=== PATIENT | female | born 1980 | race Two or more races ===

== ENCOUNTER 2016-10-17 08:15 | Inpatient (IN) | payer SELFPAY ==
[~2016-10-17] VITALS: Ht 160 cm; Wt 77.6 kg
[2016-10-17] MEDS ORDERED: LIDOCAINE 1% PF 30 ML VIAL. INJ PRN (08:30)
[2016-10-17] MEDS ORDERED: TERBUTALINE 1 MG/ML VIAL. SQ PRN (08:30)
[2016-10-17] MEDS ORDERED: 0.9 % SODIUM CHLORIDE 10 ML DISP.SYRIN. IV PRN ×2 (08:30→18:30)
[2016-10-17] MEDS ORDERED: IBUPROFEN 800 MG TABLET. PO PRN (08:30)
[2016-10-17] MEDS ORDERED: OXYTOCIN 30 UNIT/500 ML PREMIX 500 ML IV PRN ×3 (08:30→18:30)
[2016-10-17] MEDS ORDERED: FENTANYL PF 100 MCG/2 ML VIAL. IV PRN (08:30)
[2016-10-17 09:00] VITALS: BP 112/59
[2016-10-17] MEDS ORDERED: AMPICILLIN 2 GM in IV NORMAL SALINE 100ML 100 ML IV ONE (09:00)
[2016-10-17] MEDS: IV RINGERS,LACTATED 1000ML 1,000 ML IV SCH ×2 (09:19→14:05)
[2016-10-17 09:54] LABS: HEMATOCRIT 37.2 % (36.0-47.0); HEMOGLOBIN 12.6 g/dL (12.0-15.5); RED BLOOD COUNT 3.92 x10^6/uL (3.50-5.40); RED CELL DISTRIBUTION WIDTH 13.5 % (11.5-14.5); WHITE BLOOD COUNT 6.9 x10^3/uL (4.0-11.0)
[2016-10-17] MEDS: AMPICILLIN 1 GM in IV NORMAL SALINE 50ML 50 ML IV SCH ×3 (13:04→20:14)
[2016-10-17] MEDS ORDERED: L&D EPIDURAL CASSETTE 100 ML EP ONE (13:50)
[2016-10-17] MEDS ORDERED: LIDOCAINE 2% PF Vial for OR 5 ML VIAL. ONE (13:51)
[2016-10-17] MEDS ORDERED: ONDANSETRON PF 4 MG/2 ML VIAL. IV PRN (14:45)
[2016-10-17] MEDS ORDERED: L&D EPIDURAL CASSETTE 100 ML EP PRN (14:45)
[2016-10-17] MEDS ORDERED: ROPIVacaine 0.2% PF 10 ML VIAL. EPI ONE (14:45)
[2016-10-17] MEDS ORDERED: FENTANYL PF 100 MCG/2 ML VIAL. EPI ONE (14:45)
[2016-10-17] MEDS ORDERED: EPHEDRINE PF IN SALINE 50 MG/5 ML DISP.SYRIN. IV PRN (14:45)
[2016-10-17] MEDS ORDERED: NALOXONE 0.4 MG/ML VIAL. IV PRN (14:45)
[2016-10-17] MEDS ORDERED: MISOPROSTOL 200 MCG TABLET ONE ×2 (18:00→18:13)
--- NOTE | 2016-10-17 18:28 | PDOC1 ---
OB - History Hx of Present Care: Good Care Ultrasounds: Normal mid trimester US Obstetrical Complications: None Medical Complications: None Past Family/Social History * Past Medical, Surgical, Family and Obstetric Histories reviewed from chart. Blood Type: O+ Rubella: Immune RPR/VDRL: Negative GBS Status: Positive HBsAG: Negative OB - Chief Complaint & HPI Date of Admission: Date of Admission: Oct 17, 2016 at 08:15 Chief Complaint/History : 9 Para: /8 EDC: Oct 24, 2016 Reason for admission: induction of labor Indication for induction: other Admission Nurse Assessment Rev: Yes Problems: OB - Admission Exam Physical Exam Vitals: VS - Last 72 Hours, by Label Date Time Temp Pulse Resp B/P Pulse Ox O2 Delivery O2 Flow Rate FiO2 10/17/16 14:25 18 10/17/16 09:00 97.9 73 22 112/59 97.9 HEENT: Normal Heart: Regular Rate Lungs: Clear, Equal Abdomen: Gravid Extremities: Normal Pulses, No tenderness or swelling Reflexes: Normal Cervical Dilatation: 3cm Effacement: 25% Station: Ballotable Membranes: Intact Accelerations: Accelerations Present Contractions on Admission: 6-10 Minutes Apart Intensity: Mild Assessment/Plan Assessment/Plan TIUP Grand multip Induction ACSVD MORIS MARCUS MD Oct 17, 2016 18:28
[2016-10-17] MEDS ORDERED: SIMETHICONE 80 MG TAB.CHEW PO PRN (18:30)
[2016-10-17] MEDS ORDERED: PHENYLEPH/MINERAL OIL/PETROLAT RECTAL OINTMENT 28GM TUBE. RC PRN (18:30)
[2016-10-17] MEDS ORDERED: BENZOCAINE 20% TOPICAL AEROSOL SPRAY 57GM CAN. TP PRN (18:30)
[2016-10-17] MEDS ORDERED: ZOLPIDEM 5 MG TABLET. PO PRN (18:30)
[2016-10-17] MEDS ORDERED: DIPHENHYDRAMINE HCL 25 MG CAPSULE PO PRN (18:30)
[2016-10-17] MEDS ORDERED: HYDROCODONE/APAP 5/325MG TABLET. PO PRN ×2 (18:30)
[2016-10-17] MEDS ORDERED: MAGNESIUM HYDROXIDE 2,400 MG/30 ML ORAL.SUSP. PO PRN (18:30)
[2016-10-17] MEDS ORDERED: HYDROCORTISONE 1% TOPICAL OINTMENT 30GM TUBE. TP PRN (18:30)
[2016-10-17] MEDS ORDERED: MAG HYDROX/ALUMINUM HYD/SIMETH 30 ML ORAL.SUSP PO PRN (18:30)
--- NOTE | 2016-10-17 18:31 | PDOC ---
VAGINAL DELIVERY DATE DATE: 10/17/16 TIME: 18:28 : Other (9) Para: Other EDC: Oct 24, 2016 VAGINAL DELIVERY: VTX VACCUM ASSISTED: No PLACENTA: Spontaneous SEX: Female WEIGHT 7/12 Nuchal Cord: No Amniotic Fluid: Clear PAIN: Epidural EPISIOTOMY: No EXTENSION: No EBL 300cc COMPLICATIONS None CONDITION Stable Signs of Intrauterine Infectio: None Shoulder Dystocia: No DIAGNOSIS TIUP del Problems: MORIS MARCUS MD Oct 17, 2016 18:31
[2016-10-17 21:15] VITALS: BP 113/49
[2016-10-17 22:39] VITALS: BP 108/80
[2016-10-18] VITALS (10 sets, daily range): BP systolic 107–117; BP diastolic 37–62
[2016-10-18] MEDS: IBUPROFEN 800 MG TABLET. PO SCH ×2 (01:52→17:54)
[2016-10-18] MEDS ORDERED: ONDANSETRON PF 4 MG/2 ML VIAL. IV PRN (07:00)
[2016-10-18] MEDS ORDERED: PROCHLORPERAZINE 10 MG/2 ML VIAL. IV PRN (07:00)
[2016-10-18] MEDS ORDERED: HYDROMORPHONE 2 MG/ML VIAL. IV PRN (07:00)
[2016-10-18] MEDS ORDERED: FENTANYL PF 100 MCG/2 ML VIAL. IV PRN ×2 (07:00)
[2016-10-18] MEDS ORDERED: IV RINGERS,LACTATED 1000ML 1,000 ML IV SCH (07:00)
[2016-10-18] MEDS ORDERED: MORPHINE SULFATE 2 MG/ML DISP.SYRIN. IV PRN (07:00)
[2016-10-18] MEDS ORDERED: LIDOCAINE 1% 1 ML SYRINGE. ID PRN (07:00)
[2016-10-18] MEDS ORDERED: BUPIVAC MPF-EPI 0.5%-1:200000 30 ML VIAL. ONE (07:07)
[2016-10-18] MEDS ORDERED: FERROUS SULFATE 325 MG TABLET PO SCH (08:00)
[2016-10-18] MEDS ORDERED: SUCCINYLCHOLINE 200 MG/10 ML VIAL. ONE (08:05)
[2016-10-18] MEDS ORDERED: PROPOFOL 20 ML IV ONE (08:05)
[2016-10-18] MEDS ORDERED: ONDANSETRON PF 4 MG/2 ML VIAL. ONE (08:05)
[2016-10-18] MEDS ORDERED: FENTANYL PF 100 MCG/2 ML VIAL. ONE (08:05)
[2016-10-18] MEDS ORDERED: LIDOCAINE 2% 100 MG/5 ML DISP.SYRIN. ONE (08:05)
[2016-10-18] MEDS ORDERED: DEXAMETHASONE SOD PHOS 20 MG/5 ML VIAL. ONE (08:05)
[2016-10-18] MEDS ORDERED: ROPIVacaine 0.2% IN 0.9%NACL PF 40 MG/20 ML DISP.SYRIN. ONE (08:13)
[2016-10-18] MEDS ORDERED: KETOROLAC 30 MG/ML SYRINGE FOR OR. INJ ONE (08:30)
--- NOTE | 2016-10-18 09:08 | PDOC ---
BRIEF OPERATIVE NOTE Date: Oct 18, 2016 Pre-Op Diagnosis Multiparous desires permanent sterilization Post-Op Diagnosis Same Procedure Performed PPBTL Surgeon AMRIT Anesthesia Type: General Blood Loss 20cc Specimens Obtained R and L ovaducts Complications None MORIS MARCUS MD Oct 18, 2016 09:08
--- NOTE | 2016-10-18 10:08 | OP ---
DATE OF SURGERY: 10/18/2016 PREOPERATIVE DIAGNOSIS: Multiparous, desires permanent sterilization. POSTOPERATIVE DIAGNOSES: Multiparous, desires permanent sterilization. PROCEDURE: bilateral tubal ligation. SURGEON: Moris Pearson M.D. FOREST PATROLMAN: None. ANESTHESIA: General. ESTIMATED BLOOD LOSS: Less than 10 mL. FLUIDS: Crystalloid. SPECIMENS: Right and left oviducts. COMPLICATIONS: None. CONDITION: Stable. DESCRIPTION OF PROCEDURE: After risks, benefits, indications, and alternatives were discussed in detail with the patient, the patient was brought to the OR theater, placed in a supine position. After adequate general anesthesia, the patient was prepped and draped in usual sterile manner. An infraumbilical incision was made sharply with a scalpel. Rectus fascia was grasped x 2 with Allis clamps, elevated way above the abdominal contents and incised sharply with the scalpel. Peritoneum was entered bluntly with a gloved hand. [facility] retractor was placed in the space, first it was placed to the incision over the left cornu. After the patient was placed in the Trendelenburg, left tube was grasped with [place] clamps, followed to its fimbriated end. A relatively avascular portion in the mid ampullary region was identified. Bovie cautery was used to make a window through this, 2-0 plain ties were used to doubly ligate the tube approximately 2 to 3 cm apart. The tube was transected between these two ligatures. The ends of the tube were cauterized. Good hemostasis was assured, and then the tube was allowed to fall back within the abdominal cavity. Same procedure was carried out on the opposite side. The rectus fascia was reapproximated with 0 Vicryl in a running manner. Subcutaneous tissue was reapproximated with 4-0 Monocryl in subcuticular fashion. The skin was reapproximated with 4-0 Monocryl in subcuticular fashion, not the subcutaneous tissue. The skin was reapproximated with 4-0 Monocryl in subcuticular fashion. The incision was infiltrated with 0.5% Marcaine with epinephrine, approximately 30 mL. The procedure was terminated. Sponge, needle, and instrument counts were correct x 2 per nursing staff. The patient went to postop anesthesia recovery in stable condition. MORIS PEARSON MD DR: James JOB#: [id number] / [id number]
[2016-10-19] MEDS: ACETAMINOPHEN 325 MG TABLET. PO PRN ×2 (01:36→07:59)
[2016-10-19 04:43] VITALS: BP 104/58
[2016-10-19] MEDS: IBUPROFEN 800 MG TABLET. PO SCH ×2 (06:28→14:13)
[2016-10-19 11:20] VITALS: BP 104/60
--- NOTE | 2016-10-19 13:18 | PDOC3 ---
OB DISCHARGE SUMMARY DATE OF ADMISSION: 10/17/16 DATE OF DISCHARGE: 10/19/16 REASON FOR ADMISSION: Induction of labor PROCEDURES: None INTRAPARTUM PROCEDURES: Spontanous Vag Deliv PROCEDURES: Tubal Ligation OPERATIONS: None DISCHARGE DIAGNOSIS: Term Delivered DISCHARGE INFORMATION: Activity, Diet HOSPITAL COURSE unremarkable CONDITION AT DISCHARGE Stable MORIS MARCUS MD Oct 19, 2016 13:18
[2016-10-19] MEDS ORDERED: NAPR500T PO (13:46)
[2016-10-19] MEDS ORDERED: OXYC-323 PO (13:46)
--- NOTE | 2016-10-21 08:31 | PATHOLOGY ---
PATHOLOGY REPORT * * * * * * * * FINAL DIAGNOSIS: A. Fallopian tube, right tubal ligation: - Segment of fallopian tube confirmed. B. Fallopian tube, left tubal ligation: - Segment of fallopian tube confirmed. (JPM:csd; d/t: 10/20/2016) REPORT ELECTRONICALLY SIGNED BY: Elgin Rider M.D. DATE/TIME: 10/21/2016 08:30 * * * * * * * * GROSS PATHOLOGY: A. Received in formalin labeled "Sary Huffman, right tube," is a pink-walker segment of fallopian tube measuring 2.7 cm in length and 0.5 cm in diameter. The tissue is submitted entirely in cassette A1. B. Received in formalin labeled "Sary Huffman, left tube," is a pink-walker segment of fallopian tube measuring 2.1 cm in length and 0.5 cm in diameter. The tissue is submitted entirely in cassette B1. (KAH; 10/19/2016) INITIAL CPT CODE(S): A; 66001 B; 40349 Professional services performed [place] [facility] [place] [address] Technical services performed by [facility] at [address] [place] [address], [facility] [address] [address]. SPECIMEN(S) RECEIVED: A.Right tube B.Left tube CLINICAL HISTORY: Bilateral tubal ligation PATIENT: SARY HUFFMAN /AGE: 602/05/1980 (Age: 36) PATIENT #: [id number] ALT CASE #: SPECIMEN COLLECTION DATE: 10/18/2016 SPECIMEN RECEIVED DATE: 10/19/2016 [facility] - [address] [place] [address] - PHONE: [phone] * * * END OF REPORT * * *
== END 2016-10-19 14:15 | disposition home or self-care (01) | DRG 767 ==
LOC: 3 SO LND 08:15 → 3 NORTH 21:00
PROVIDERS: ADMIT Specialist; ATTEND Specialist
PROC: 10E0XZZ Delivery of Products of Conception, External Approach (ICD-10-PCS; principal; 2016-10-17)
PROC: 3E0S3CZ (ICD-10-PCS; 2016-10-17)
PROC: 00HU33Z Insertion of Infusion Device into Spinal Canal, Percutaneous Approach (ICD-10-PCS; 2016-10-17)
PROC: 0UB70ZZ Excision of Bilateral Fallopian Tubes, Open Approach (ICD-10-PCS; 2016-10-18)
DX: O99.824 Streptococcus B carrier state complicating childbirth (principal); O09.523 Supervision of elderly multigravida, third trimester; Z3A.39 39 weeks gestation of pregnancy; Z37.0 Single live birth; Z30.2 Encounter for sterilization
CPT/HCPCS: 36415; 85014; 85027; 86593; 86850; 86900; 86901; C1769; J0290; J0330; J1100; J1885; J2405; J2590; J2704; J2795; J3010; J3490; J7120